=== PATIENT | female | born 1960 | race Caucasian/White ===

== ENCOUNTER 2021-06-11 06:14 | Inpatient (IN) | payer OTHER ==
[~2021-06-11] VITALS: Ht 182.9 cm; Wt 97.7 kg
[~2021-06-11 06:14] MED LIST: ATOR10TA PO; BUPR150T8 PO; GABA-339 PO; LAMO200T2 PO; LANS30CA57 PO; LEVO125T7 PO; OLAN20TA PO; SERT100T PO; TRAZ100T3 PO
[2021-06-11] MEDS ORDERED: POVIDONE IODINE 10 % TOPICAL OINT 30GM TOP ONE (06:37)
[2021-06-11] MEDS ORDERED: SUCCINYLCHOLINE CHLORIDE 20 MG/ML 10ML VIAL IV ONE (06:58)
[2021-06-11] MEDS ORDERED: HYDROmorphone HCL 2 MG/ML VL ONE (07:04)
[2021-06-11] MEDS ORDERED: fentaNYL CITRATE 100 MCG/2 ML VL ONE ×2 (07:04→08:47)
[2021-06-11] MEDS ORDERED: MIDAZOLAM HCL 2MG/2ML 2ml VIAL (1mg/ml) ONE ×2 (07:05→08:08)
[2021-06-11] MEDS ORDERED: ePHEDrine SULFATE 50 MG/ML AMP ONE (07:05)
[2021-06-11] MEDS ORDERED: KETAMINE HCL 10 ML ONE (07:05)
[2021-06-11] MEDS ORDERED: ONDANSETRON HCL 4 MG/2 ML VIAL ONE (07:05)
[2021-06-11] MEDS ORDERED: BUPIVACAINE W/ EPINEPH 0.25% INJ 50ML MDV ONE (07:05)
[2021-06-11] MEDS ORDERED: LIDOCAINE 2% (LOCAL ANESTH.) PF 5ml SDV ONE (07:05)
[2021-06-11] MEDS ORDERED: GLYCOPYRROLATE 0.2 MG/ML 1ML VIAL ONE (07:05)
[2021-06-11] MEDS ORDERED: PROPOFOL 10 MG/ML 20 ML IV ONE (07:05)
[2021-06-11] MEDS ORDERED: PHENYLEPHRINE HCL 10 MG/ML VL ONE (07:05)
[2021-06-11] MEDS ORDERED: fentaNYL CITRATE 10 ML ONE (07:08)
[2021-06-11] MEDS ORDERED: VANCOMYCIN HCL 1000 MG VL ONE (07:08)
[2021-06-11] MEDS ORDERED: ceFAZolin 1GM/50ML 100 ML IV ONE (07:15)
[2021-06-11] MEDS ORDERED: NEOMYCIN-BACITRACIN-POLYM 15GM TOP OINT TOP ONE (08:14)
[2021-06-11] MEDS ORDERED: NALOXONE HCL 0.4 MG/ML VIAL ONE (11:09)
[2021-06-11] MEDS: LACTATED RINGER'S 1,000 ML IV SCH ×2 (11:30→22:41)
[2021-06-11] MEDS ORDERED: OXYCODONE W/ ACETAMINOPHEN 5/325MG TABLET PO PRN (11:30)
[2021-06-11] MEDS ORDERED: ONDANSETRON HCL 4 MG/2 ML VIAL IV PRN ×2 (11:30→11:45)
[2021-06-11] MEDS ORDERED: NITROGLYCERIN 0.4 MG SL TAB SL PRN (11:30)
[2021-06-11] MEDS ORDERED: ACETAMINOPHEN 325 MG TAB PO PRN (11:30)
[2021-06-11] MEDS ORDERED: MORPHINE SULFATE INJECTION 2 MG/ML SYRG IV PRN (11:30)
[2021-06-11] MEDS: HYDROmorphone HCL 2 MG/ML VL IV PRN ×3 (12:25→13:13)
[2021-06-11 13:00] VITALS: BP 119/71
[2021-06-11 17:00] VITALS: BP 130/75
[2021-06-11] MEDS: OXYCODONE W/ ACETAMINOPHEN 5/325MG TABLET PO PRN ×2 (17:02→21:23)
[2021-06-11] MEDS: ceFAZolin 1GM/50ML 50 ML IV SCH ×3 (17:30→22:47)
[2021-06-11] MEDS ORDERED: OLANZapine 5 MG TAB PO SCH (18:00)
[2021-06-11] MEDS: CYCLOBENZAPRINE HCL 10 MG TAB PO PRN (18:10)
[2021-06-11 22:00] VITALS: BP 140/81
[2021-06-11] MEDS ORDERED: SERTRALINE HCL 50 MG TAB PO SCH (22:00)
[2021-06-11] MEDS ORDERED: LAMOTRIGINE 200 MG PO SCH (22:00)
[2021-06-11] MEDS ORDERED: lamoTRIgine 100 MG TAB PO SCH (22:00)
[2021-06-11] MEDS ORDERED: DOCUSATE SOD 100 MG CAP PO SCH (22:00)
[2021-06-11] MEDS ORDERED: ATORVASTATIN 20 MG TAB PO SCH (22:00)
[2021-06-12] MEDS: CYCLOBENZAPRINE HCL 10 MG TAB PO PRN (02:46)
[2021-06-12 05:00] VITALS: BP 126/67
[2021-06-12] MEDS: BUPROPION HCL 150 MG PO SCH ×2 (06:48→08:24)
[2021-06-12] MEDS ORDERED: LEVOTHYROXINE SODIUM 25 MCG TAB PO SCH (07:00)
[2021-06-12] MEDS ORDERED: LEVOTHYROXINE SODIUM 100 MCG TAB PO SCH (07:00)
[2021-06-12] MEDS ORDERED: SENN-62 PO (07:15)
[2021-06-12] MEDS ORDERED: CYCL-837 PO (07:15)
[2021-06-12] MEDS ORDERED: PERCOT PO (07:15)
[2021-06-12 07:23] LABS: Basophils # (auto) 0 10 ^3/uL (0-0.2); Eosinophils # (auto) 0 10 ^3/uL (0-0.8); White Blood Cell 13.9 10^3/uL (4.4-10.8)
[2021-06-12 07:25] LABS: Basophils % (auto) 0.2 % (0.0-2.0); Hematocrit 36.9 % (36.0-46.0); Hemoglobin 13.2 g/dL (12.2-16.2); Lymphocytes # (auto) 2.3 10 ^3/uL (0.4-5.4); Lymphocytes % (auto) 16.4 % (10.0-50.0); Mean Corpuscular Hemoglobin 35.1 pg (28.0-32.0); Mean Corpuscular Hgb Conc. 35.7 g/dL (32.0-36.0); Mean Corpuscular Volume 98.2 fL (80.0-100.0); Monocytes % (auto) 7.3 % (0.0-12.0); Neutrophils # (auto) 10.6 10 ^3/uL (1.6-8.6); Neutrophils % (auto) 76.1 % (37.0-80.0); Red Blood Cells 3.76 10^6/uL (4.0-5.20); Red Cell Distribution Width 11.8 % (11.8-14.3)
[2021-06-12 07:35] LABS: Calcium 8.7 mg/dL (8.5-10.1); Potassium 3.5 mmol/L (3.5-5.1)
[2021-06-12 07:37] LABS: BUN/Creatinine Ratio 11.5
[2021-06-12 08:36] VITALS: BP 125/65
[2021-06-12] MEDS ORDERED: HYDRX10T PO (08:39)
[2021-06-12 08:58] VITALS: BP 125/65
[2021-06-12] MEDS ORDERED: PANTOPRAZOLE 40 MG TAB PO SCH (10:00)
== END 2021-06-12 11:00 | disposition home or self-care (01) | DRG 473 ==
LOC: SUR 06:14 → OVERFLOW 11:19 → CENTRAL 14:05
PROVIDERS: ADMIT Orthopaedic Surgery; ATTEND Orthopaedic Surgery
PROC: BR101ZZ Fluoroscopy of Cervical Spine using Low Osmolar Contrast (ICD-10-PCS; 2021-06-11)
PROC: 4A11X4G Monitoring of Peripheral Nervous Electrical Activity, Intraoperative, External Approach (ICD-10-PCS; 2021-06-11)
PROC: 0RG2071 Fusion of 2 or more Cervical Vertebral Joints with Autologous Tissue Substitute, Posterior Approach, Posterior Column, Open Approach (ICD-10-PCS; principal; 2021-06-11 07:34)
DX: M96.0 Pseudarthrosis after fusion or arthrodesis (principal); F32.A Depression, unspecified; Y83.8 Other surgical procedures as the cause of abnormal reaction of the patient, or of later complication, without mention of misadventure at the time of the procedure; Z20.822 Contact with and (suspected) exposure to COVID-19; E78.00 Pure hypercholesterolemia, unspecified; Z82.49 Family history of ischemic heart disease and other diseases of the circulatory system; Z88.2 Allergy status to sulfonamides; Z88.1 Allergy status to other antibiotic agents
CPT/HCPCS: 36415; 72040; 76000; 80048; 85025; 86850; 86900; 86901; 97116; 97163; 97530; G0378; J0330; J0690; J2001; J2250; J2405; J2704

== ENCOUNTER 2021-09-18 19:52 | Emergency (ER) | payer OTHER ==
[~2021-09-18] VITALS: Ht 182.9 cm; Wt 90.4 kg
[~2021-09-18 19:52] MED LIST changes: +CYCL-837 PO; +HYDRX10T PO; +PERCOT PO; +SENN-62 PO
[2021-09-18 20:26] VITALS: BP 119/74
== END 2021-09-19 00:51 | disposition left against medical advice (07) ==
LOC: ER 19:52
DX: R07.89 Other chest pain (principal); Z53.21 Procedure and treatment not carried out due to patient leaving prior to being seen by health care provider
CPT/HCPCS: 71046; 93005

== ENCOUNTER → 2024-01-24 | Outpatient (CLI) | payer OTHER ==
[~2024-01-24] MED LIST changes: +TRAZ-228 PO; -TRAZ100T3 PO
== END | disposition home or self-care (01) ==
LOC: XYW 13:38
PROVIDERS: ATTEND Orthopaedic Surgery Adult Reconstructive Orthopaedic Surgery
DX: T84.84XA Pain due to internal orthopedic prosthetic devices, implants and grafts, initial encounter (principal); Z96.651 Presence of right artificial knee joint; Y82.8 Other medical devices associated with adverse incidents
CPT/HCPCS: 78315; A9503

== ENCOUNTER 2024-04-12 13:56 | Emergency (ER) | payer OTHER ==
[~2024-04-12] VITALS: Ht 182.9 cm; Wt 84.0 kg
--- NOTE | 2024-04-12 14:41 | ED.PDOC ---
Musculoskeletal HPI Comments A 64 YEAR OLD FEMALE PRESENTS TO THE ED WITH CHIEF COMPLAINT KNEE, ANKLE, AND HEAD PAIN S/P FALL. PATIENT REPORTS THAT SHE HAD ACCIDENTALLY TRIPPED OVER HER DOG YESTERDAY, FALLING AND HITTING HER RIGHT KNEE, TWISTING HER RIGHT ANKLE, AND FELL BACK HITTING HER HEAD ON TILE FLOOR. PATIENT RELAYS THAT SHE HAD A RIGHT KNEE REPLACEMENT. PATIENT DENIES ANY LOC, BLOOD THINNERS, DIZZINESS, NUMBNESS, OR WEAKNESS. PT IS ALERT, ORIENTATION X4 WITH NORMAL GAIT. NO OTHER SYMPTOMS REPORTED AT THIS TIME OF CARE. Chief Complaint: Fall Injury Time Seen by MD: 14:35 Primary Care Provider: Magui Reviewed Notes: Nurses Notes, Medications, Allergies Allergies: Coded Allergies: Sulfa Antibiotics (Verified Allergy, Intermediate, 06/11/21) Tetracycline (Verified Allergy, Unknown, 06/10/21) Morphine (Unverified Adverse Reaction, Intermediate, tachycardia, itchy, 06/10/21) Home Meds Active Scripts Acetaminophen (Tylenol 8 Hour Arthritis) 650 Mg Tab, 650 MG PO TID, #30 TAB Prov:DINESH DAWSON 04/12/24 Sennosides-Docusate Sodium (Senokot S) 1 Tab Tab, 1 TAB PO QPM, #20 TAB Prov:CLARA GARCIA MD 06/12/21 Oxycodone W/ Acetaminophen (Percocet 5/325MG) 1 Tab Tb, 1 TAB PO TID PRN, #20 TAB Prov:CLARA GARCIA MD 06/12/21 Cyclobenzaprine Hcl (Cyclobenzaprine Hcl) 5 Mg Tab, 1 TAB PO TID PRN, #30 TAB Prov:CLARA GARCIA MD 06/12/21 Reported Medications Hydroxyzine Hcl (Hydroxyzine Hcl) 10 Mg Tab, 1 TAB PO BID 06/12/21 Olanzapine (Zyprexa) 20 Mg Tab, 10 MG PO QPM, TAB 06/10/21 Sertraline Hcl (Zoloft) 100 Mg Tab, 100 MG PO HS, TAB 06/10/21 Bupropion Hcl (Wellbutrin Sr) 150 Mg Tab, 150 MG PO QAM, TAB 06/10/21 Trazodone Hcl (Trazodone Hcl) 100 Mg Tab, 100 MG PO HS, TAB 06/10/21 Levothyroxine Sodium (Levothyroxine Sodium) 125 Mcg Tab, 125 MCG PO QAM, TAB 06/10/21 Lansoprazole (Lansoprazole) 30 Mg Cap, 15 MG PO QAM, CAP 06/10/21 Lamotrigine (Lamictal) 200 Mg Tab, 200 MG PO BID, TAB 06/10/21 Gabapentin (Gabapentin) 600 Mg Tab, 1200 MG PO QPM, TAB 06/10/21 Atorvastatin Calcium (Lipitor) 10 Mg Tab, 10 MG PO QPM, TAB 06/10/21 Information Source: Patient Mode of Arrival: Ambulatory Location: Right Extremity Location: Ankle, Knee, Other (BACK OF HEAD) Timing: Days Prehospital treatment: None Severity: Moderate Able to Move Extremity: Yes Bear Weight: Limited Pain: Moderate Mechanism: Blunt Trauma, Twisting Circumstances: Fall Onset of Symptoms: After Trauma Symptoms: Pain DVT Risk Factors: NONE Last Tetanus: UTD History of: Knee Operation Associated signs and symptoms: Knee pain, Ankle pain Past Medical History PAST MEDICAL HISTORY: Denies Surgical History (Other): RT KNEE REPLACEMENT 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 ROLLER Hx Family History Family History: Reviewed,noncontributory to illness, No family hx of Stroke Social History Smoker: Non-Smoker Alcohol: Denies ETOH Use Drugs: Denies Drug Use Lives In: Home Constitutional: denies: chills, diaphoresis, fatigue, fever, malaise, sweats, weakness, others EENTM: denies: blurred vision, double vision, ear bleeding, ear discharge, ear drainage, ear pain, ear ringing, eye pain, eye redness, hearing loss, mouth pain, mouth swelling, nasal discharge, nose bleeding, nose congestion, nose pain , photophobia, tearing, throat pain, throat swelling, voice changes, others Respiratory: denies: cough, hemoptysis, orthopnea, SOB at rest, shortness of breath, SOB with excertion, stridor, wheezing, others Cardiovascular: denies: chest pain, dizzy spells, diaphoresis, Dyspnea on exertion, edema, irregular heart beat, left arm pain, lightheadedness, palpitations, PND, syncope, others Gastrointestinal: denies: abdomen distended, abdominal pain, blood streaked bowels, constipated, diarrhea, dysphagia, difficulty swallowing, hematemesis, melena, nausea, poor appetite, poor fluid intake, rectal bleeding, rectal pain, vomiting, others Genitourinary: denies: abnormal vagina bleeding, burning, dyspareunia, dysuria, flank pain, frequency, hematuria, incontinence, pain, , vagina discharge, urgency, others Neurological: denies: dizziness, fainting, headache, left sided numbness, left sided weakness, numbness, paresthesia, pre-existing deficit, right sided numbness, right sided weakness, seizure, speech problems, tingling, tremors, weakness, others Musculoskeletal: reports: joint pain, joint swelling, others (RT ANKLE PAIN, RT KNEE PAIN, POSTERIOR HEAD PAIN); denies: back pain, gout, muscle pain, muscle stiffness, neck pain Integumetry: denies: bruises, change in color, change in hair/nails, dryness, laceration, lesions, lumps, rash, wounds, others Allergic/Immunocompromised: denies: Difficulty Healing, Frequent Infections, Hives, Itching, others Hematologic/Lymphatic: denies: anemia, blood clots, easy bleeding, easy bruising, swollen glands, others Endocrine: denies: excessive hunger, excessive sweating, excessive thirst, excessive urination, flushing, intolerance to cold, intolerance to heat, unexplained weight gain, unexplained weight loss, others Psychiatric: denies: anxiety, bipolar disorder, depression, hopeless, panic disorder, schizophrenia, sleepless, suicidal, others All Other Systems: Reviewed and Negative Physical Exam General Appearance: No Apparent Distress, Normal HEENT: Head (NO BONY TENDERNESS AND SWELLING ON SCALP, NO CONTUSIONS AND HEMATOMAS OF SCALP. ), Normal ENT Inspection, PERRL/EOMI Neck: Full Range of Motion, Non-Tender, Normal, Normal Inspection Respiratory: Chest Non-Tender, Lungs Clear, No Accessory Muscle Use, No Respiratory Distress, Normal Breath Sounds Cardiovascular: No Edema, No JVD, No Murmur, No Gallop, Normal Peripheral Pulses, Regular Rate/Rhythm Breast Exam: Deferred Gastrointestinal: No Organomegaly, Non Tender, No Pulsatile Mass, Normal Bowel Sounds, Soft Genitalia: Deferred Pelvic: Deferred Rectal: Deferred Extremities: No calf tenderness, Normal capillary refill, Normal range of motion, No pedal edema, Swelling (TENDERNESS AND SWELLING ON RIGHT ANKLE, NO BONY TENDERNESS AND DEFORMITY. ), Tender (TENDERNESS ON RIGHT KNEE, NO BONY TENDERNESS AND DEFORMITY. ) Musculoskeletal : Apperance: Normal Neurologic: Alert, envelope folder II-XII nml as Tested, No Motor Deficits, Normal Affect, Normal Mood, No Sensory Deficits Cerebellar Function: Normal Reflexes: Normal Skin: Dry, Normal Color, Warm Peripheral Pulses: 2+ carotid (R), 2+ carotid (L) Lymphatic: No Adenopathy Was a procedure done? Was a procedure done?: No Differential Diagnosis EXT Differential Diagnosis: Fracture, Sprain, Dislocation, Contusion, Strain, Bursitis X-Ray, Labs, Meds, VS Vital Signs Date Time Temp Pulse Resp B/P (MAP) Pulse Ox O2 Delivery O2 Flow Rate FiO2 04/12/24 15:20 98 20 95 Room Air 04/12/24 15:20 99.1 98 20 125/68 (87) 95 99.1 04/12/24 14:21 99.1 98 20 125/68 (87) 95 CT HEAD: FINDINGS: There is no evidence of acute intracranial hemorrhage, mass, mass effect midline shift. There is no hydrocephalus or extra-axial fluid collection. Bro-white matter differentiation is maintained. The visualized paranasal sinuses and mastoid air cells are clear. The calvarium is intact. IMPRESSION: 1. No acute intracranial process. RT KNEE XR: FINDINGS/IMPRESSION: There is no evidence of acute fracture or dislocation. Right total knee arthroplasty. The alignment is anatomical. There is no radiopaque foreign body. RT ANKLE XR: There is no evidence of acute fracture or dislocation. The visualized joint space is well maintained. The alignment is anatomical. There is no radiopaque foreign body. X-Ray, Labs, Meds, VS Comment EXTERNAL MEDICAL RECORDS REVIEWED: [NONE] INDEPENDENT HISTORIANS: [NONE] SOCIAL DETERMINANTS OF HEALTH: [NONE] LABS ORDERED: NONE REVIEWED AND INTERPRETED RESULTS: RT KNEE XR, RT ANKLE XR, CT HEAD IMAGING ORDERED: RT KNEE XR, RT ANKLE XR, CT HEAD TREATMENTS ORDERED: TYLENOL 1G PO PROCEDURES PERFORMED: NONE CRITICAL CARE TIME: NONE I HAVE DISCUSSED THE PATIENT WITH THE ATTENDING PHYSICIAN DR. GARCIA AND HE AGREES WITH THE PATIENT'S PLAN OF CARE AND DISPOSITION. GIVEN THE HISTORY AND PRESENT ILLNESS OF THE PATIENT, AFTER REVIEWING LABS, IMAGING, AND COURSE OF TREATMENT ADMINISTERED DURING THEIR ED VISIT, THERE IS LOW SUSPICION FOR RED FLAG FINDINGS. BASED ON HISTORY OF PRESENT ILLNESS, AND PHYSICAL EXAM, PATIENT WILL BE DISCHARG ED HOME. DISCUSSED PLAN FOR DISCHARGE HOME WITH RX. MEDICATION WARNINGS GIVEN. SHARED DECISION MAKING: DISCUSSED WITH PATIENT THAT THEIR WORKUP WAS NORMAL. PATIENT INSTRUCTED TO FOLLOW UP WITH PRIMARY CARE PROVIDER IN 1-2 DAYS FOR RE- EVALUATION OF SYMPTOMS. PATIENT VERBALIZES UNDERSTANDING TO RETURN TO ED FOR NEW OR WORSENING SYMPTOMS OR IF FOLLOW UP WITH PCP CANNOT BE OBTAINED. PATIENT FEELS COMFORTABLE GOING HOME AT THIS TIME. ALL QUESTIONS ADDRESSED AT TIME OF DISCHARGE. Time of 1ST Reevaluation: 15:31 Reevaluation 1ST: Improved Patient Education/Counseling: Diagnosis, Treatment, Need For Follow Up Family Education/Counseling: Diagnosis, Treatment, No Family Present Medical Screening: No EMC Exist At This Time Departure 1 Departure Time of Disposition: 15:31 Impression: Primary Impression: Headache Qualified Codes: G44.319 - Acute post-traumatic headache, not intractable Additional Impressions: Sprain of right knee Qualified Codes: S83.8X1A - Sprain of other specified parts of right knee, initial encounter Sprain of right ankle Qualified Codes: S93.401A - Sprain of unspecified ligament of right ankle, initial encounter Status post fall Disposition: 01 HOME / SELF CARE / HOMELESS Condition: Stable Additional Instructions: FOLLOW-UP WITH PCP IN 1 TO 2 DAYS. TAKE MEDICATIONS PRESCRIBED. RETURN TO ED FOR ANY NEW OR WORSENING SYMPTOMS. e-Prescriptions Acetaminophen (Tylenol 8 Hour Arthritis) 650 Mg Tab 650 MG PO TID, #30 TAB Prov: DINESH DAWSON 04/12/24 Discharged With: Self Critical Care Note Critical Care Time?: No Stability Stability form required: No Heart Score Heart Score: Heart Score Response (Comments) Value History N/A 0 EKG N/A 0 Age N/A 0 Risk Factors N/A 0 Troponin N/A 0 Total 0 I personally scribed for DINESH DAWSON ([email or web address]) on 04/12/24 at 14:41. Electronically submitted by Ede Sherman ([email or web address]). I personally scribed for DINESH DAWSON ([email or web address]) on 04/12/24 at 15:16. Electronically submitted by Ede Sherman ([email or web address]). I personally scribed for DINESH DAWSON ([email or web address]) on 04/12/24 at 15:28. Electronically submitted by Ede Sherman ([email or web address]). DINESH DAWSON Apr 12, 2024 14:41
--- NOTE | 2024-04-12 15:06 | DVH ---
EXAM: CT HEAD WITHOUT CONTRAST HISTORY: FALL COMPARISON: None TECHNIQUE: Axial images of the head were obtained and reformatted in coronal and sagittal planes. All CT scans at this medical facility are performed using dose modulation techniques as appropriate t o a performed exam including the following: Automated exposure control was utilized; adjustment of th e MA and/or KV according to patient size; and use of iterative reconstruction technique. CT Dose: CTDI volume is 91 mGy. Dose-length product is 16 19 mGy*cm FINDINGS: There is no evidence of acute intracranial hemorrhage, mass, mass effect midline shift. There is no h ydrocephalus or extra-axial fluid collection. Bro-white matter differentiation is maintained. The visualized paranasal sinuses and mastoid air cells are clear. The calvarium is intact. IMPRESSION: 1. No acute intracranial process. HS:Y
[2024-04-12 15:20] VITALS: BP 125/68; PULSE 98; RESP 20; TEMP 99.1; O2SAT 95
--- NOTE | 2024-04-12 15:20 | DVH ---
EXAM: XY R KNEE 3V XRAY CLINICAL INDICATION: FALL TECHNIQUE: XY R KNEE 3V XRAY Comparison: None FINDINGS/IMPRESSION: There is no evidence of acute fracture or dislocation. Right total knee arthroplasty. The alignment is anatomical. There is no radiopaque foreign body.
--- NOTE | 2024-04-12 15:22 | DVH ---
EXAM: XY R ANKLE 3 VIEW CLINICAL INDICATION: FALL TECHNIQUE: XY R ANKLE 3 VIEW Comparison: None FINDINGS/IMPRESSION: There is no evidence of acute fracture or dislocation. The visualized joint space is well maintained. The alignment is anatomical. There is no radiopaque foreign body.
[2024-04-12] MEDS ORDERED: ACET-1080 PO (15:30)
[2024-04-12] MEDS: ACETAMINOPHEN 325 MG TAB PO ONE (15:31)
== END 2024-04-12 15:42 | disposition home or self-care (01) ==
LOC: ER 13:56
DX: S83.91XA Sprain of unspecified site of right knee, initial encounter (principal); S93.401A Sprain of unspecified ligament of right ankle, initial encounter; R51.9 Headache, unspecified; Z96.651 Presence of right artificial knee joint; Z88.1 Allergy status to other antibiotic agents; Z88.2 Allergy status to sulfonamides; Z88.5 Allergy status to narcotic agent; Z79.899 Other long term (current) drug therapy; W01.0XXA Fall on same level from slipping, tripping and stumbling without subsequent striking against object, initial encounter; Y93.89 Activity, other specified; Y92.89 Other specified places as the place of occurrence of the external cause; Y99.8 Other external cause status
CPT/HCPCS: 70450; 73562; 73610

== ENCOUNTER 2024-08-02 23:25 | Emergency (ER) | payer OTHER ==
[~2024-08-02] VITALS: Ht 182.9 cm; Wt 82.2 kg
[~2024-08-02 23:25] MED LIST changes: +ACET-1080 PO
[2024-08-03 01:30] VITALS: BP 120/76; PULSE 80; RESP 16; TEMP 97.5; O2SAT 96
--- NOTE | 2024-08-03 01:33 | DVH ---
CLINICAL INDICATION: fall injury TECHNIQUE: XY L KNEE 2V XRAY Comparison: XY R KNEE 3V XRAY on DOS: 04/12/24 FINDINGS / IMPRESSION: No evidence of fracture or dislocation. Joint spaces are normal.
--- NOTE | 2024-08-03 01:36 | DVH ---
CLINICAL INDICATION: fall injury TECHNIQUE: XY L SHOULDER 2+ VIEW XRAY Comparison: None FINDINGS/IMPRESSION: : Comminuted fracture and mildly displaced fracture of the left humeral neck. Fracture lines involve th e greater and lesser tuberosities. Bony demineralization. Joint spaces preserved. Overlying soft tissues intact. Visualized left lung is clear.
[2024-08-03] MEDS ORDERED: IBUP-1455 PO (02:09)
--- NOTE | 2024-08-03 02:10 | ED.PDOC ---
Musculoskeletal HPI Comments This patient is a pleasant 64-year-old female who arrives to the ED today for evaluation of left shoulder and left knee concerns status post ground level fall approximately 1 hour prior to arrival. Patient states he accidentally slipped and fell at her home and landed on her left knee and lateral left shoulder. Patient describes significant pain to the left shoulder and moderate pain in the left knee. Patient is able to ambulate. Patient came with the facility on her own. Mild blood loss due to abrasion on left knee. Patient denies any head trauma. Chief Complaint: Fall Injury Time Seen by MD: 23:27 Primary Care Provider: Magui Reviewed Notes: Nurses Notes Allergies: Coded Allergies: Sulfa Antibiotics (Verified Allergy, Intermediate, 06/11/21) Tetracycline (Verified Allergy, Unknown, 06/10/21) Morphine (Unverified Adverse Reaction, Intermediate, tachycardia, itchy, 06/10/21) Home Meds Active Scripts Ibuprofen Micronized (Ibuprofen) 800 Mg Tab, 800 MG PO Q8HP PRN, #30 TAB Prov:DOLORES SIMS PAC 08/03/24 Acetaminophen (Tylenol 8 Hour Arthritis) 650 Mg Tab, 650 MG PO TID, #30 TAB Prov:DINESH DAWSON 04/12/24 Sennosides-Docusate Sodium (Senokot S) 1 Tab Tab, 1 TAB PO QPM, #20 TAB Prov:CLARA GARCIA MD 06/12/21 Oxycodone W/ Acetaminophen (Percocet 5/325MG) 1 Tab Tb, 1 TAB PO TID PRN, #20 TAB Prov:CLARA GARCIA MD 06/12/21 Cyclobenzaprine Hcl (Cyclobenzaprine Hcl) 5 Mg Tab, 1 TAB PO TID PRN, #30 TAB Prov:CLARA GARCIA MD 06/12/21 Reported Medications Hydroxyzine Hcl (Hydroxyzine Hcl) 10 Mg Tab, 1 TAB PO BID 06/12/21 Olanzapine (Zyprexa) 20 Mg Tab, 10 MG PO QPM, TAB 06/10/21 Sertraline Hcl (Zoloft) 100 Mg Tab, 100 MG PO HS, TAB 06/10/21 Bupropion Hcl (Wellbutrin Sr) 150 Mg Tab, 150 MG PO QAM, TAB 06/10/21 Trazodone Hcl (Trazodone Hcl) 100 Mg Tab, 100 MG PO HS, TAB 06/10/21 Levothyroxine Sodium (Levothyroxine Sodium) 125 Mcg Tab, 125 MCG PO QAM, TAB 06/10/21 Lansoprazole (Lansoprazole) 30 Mg Cap, 15 MG PO QAM, CAP 06/10/21 Lamotrigine (Lamictal) 200 Mg Tab, 200 MG PO BID, TAB 06/10/21 Gabapentin (Gabapentin) 600 Mg Tab, 1200 MG PO QPM, TAB 06/10/21 Atorvastatin Calcium (Lipitor) 10 Mg Tab, 10 MG PO QPM, TAB 06/10/21 Information Source: Patient Mode of Arrival: Ambulatory Location: Left Extremity Location: Knee, Shoulder Timing: Minutes Prehospital treatment: None Severity: Moderate Able to Move Extremity: No Bear Weight: Limited Pain: Moderate Hand Dominance: Right Mechanism: Blunt Trauma Circumstances: Fall Onset of Symptoms: After Trauma Symptoms: Swelling, Pain DVT Risk Factors: NONE Associated signs and symptoms: Shoulder pain, Knee pain Past Medical History PAST MEDICAL HISTORY: Denies SANITARY PLUMBER History: Denies all SANITARY PLUMBER Hx Family History Family History: Reviewed,noncontributory to illness, No family hx of Stroke Social History Smoker: Non-Smoker Alcohol: Denies ETOH Use Drugs: Denies Drug Use Lives In: Home Constitutional: denies: chills, diaphoresis, fatigue, fever, malaise, sweats, weakness, others EENTM: denies: blurred vision, double vision, ear bleeding, ear discharge, ear drainage, ear pain, ear ringing, eye pain, eye redness, hearing loss, mouth pain, mouth swelling, nasal discharge, nose bleeding, nose congestion, nose pain, photophobia, tearing, throat pain, throat swelling, voice changes, others Respiratory: denies: cough, hemoptysis, orthopnea, SOB at rest, shortness of breath, SOB with excertion, stridor, wheezing, others Cardiovascular: denies: chest pain, dizzy spells, diaphoresis, Dyspnea on exertion, edema, irregular heart beat, left arm pain, lightheadedness, p alpitations, PND, syncope, others Gastrointestinal: denies: abdomen distended, abdominal pain, blood streaked bowels, constipated, diarrhea, dysphagia, difficulty swallowing, hematemesis, melena, nausea, poor appetite, poor fluid intake, rectal bleeding, rectal pain, vomiting, others Genitourinary: denies: abnormal vagina bleeding, burning, dyspareunia, dysuria, flank pain, frequency, hematuria, incontinence, pain, , vagina discharge, urgency, others Neurological: denies: dizziness, fainting, headache, left sided numbness, left sided weakness, numbness, paresthesia, pre-existing deficit, right sided numbness, right sided weakness, seizure, speech problems, tingling, tremors, weakness, others Musculoskeletal: reports: others (Left shoulder and left knee pain); denies: b ack pain, gout, joint pain, joint swelling, muscle pain, muscle stiffness, neck pain Integumetry: denies: bruises, change in color, change in hair/nails, dryness, laceration, lesions, lumps, rash, wounds, others Allergic/Immunocompromised: denies: Difficulty Healing, Frequent Infections, Hives, Itching, others Hematologic/Lymphatic: denies: anemia, blood clots, easy bleeding, easy bruising, swollen glands, others Endocrine: denies: excessive hunger, excessive sweating, excessive thirst, excessive urination, flushing, intolerance to cold, intolerance to heat, unexplained weight gain, unexplained weight loss, others Psychiatric: denies: anxiety, bipolar disorder, depression, hopeless, panic disorder, schizophrenia, sleepless, suicidal, others Physical Exam General Appearance: Moderate Distress (Patient is in [id number] distress as long as she does not move her extremities or shoulder.), Normal HEENT: Normal ENT Inspection, Pharynx Normal, TMs Normal Neck: Full Range of Motion, Non-Tender, Normal, Normal Inspection Respiratory: Chest Non-Tender, Lungs Clear, No Accessory Muscle Use, No Respiratory Distress, Normal Breath Sounds Cardiovascular: No Edema, No JVD, No Murmur, No Gallop, Normal Peripheral Pulses, Regular Rate/Rhythm Breast Exam: Deferred Gastrointestinal: No Organomegaly, Non Tender, No Pulsatile Mass, Normal Bowel Sounds, Soft Genitalia: Deferred Pelvic: Deferred Rectal: Deferred Extremities: Other (Patient reveals an abrasion and mild edema to left knee. Moderate reduced range of motion. Patient is able to bear weight. Left shoulder is exquisitely tender to palpation on lateral aspect with significant reduced range of motion. Distal neurovascularly intact.) Neurologic: Alert, No Motor Deficits, Normal Affect, Normal Mood, No Sensory Deficits Cerebellar Function: Normal Reflexes: Normal Skin: Dry, Normal Color, Warm Lymphatic: No Adenopathy Was a procedure done? Was a procedure done?: No Differential Diagnosis EXT Differential Diagnosis: Sprain, Dislocation, Contusion, Strain X-Ray, Labs, Meds, VS Vital Signs Date Time Temp Pulse Resp B/P (MAP) Pulse Ox O2 Delivery O2 Flow Rate FiO2 08/03/24 00:36 97.7 84 18 116/76 (89) 95 97.7 X-Ray, Labs, Meds, VS Comment All studies performed at the ED were evaluated by me personally. Imaging studies of the left knee were unremarkable for any acute fractures. Imaging of the left shoulder confirmed a humeral neck fracture and humeral head fracture that is comminuted. Patient was provided with a double sugar-tong splint as well as shoulder immobilization prior to discharge. Patient is familiar with the Dr. Mcleod as he has worked on her knee before. Advised patient to follow up with the primary care provider and conversive with Dr. Mcleod four discussions related to management of left humeral fracture. Pain medication as needed. Patient states she has narcotic pain medication available at home. Time of 1ST Reevaluation: 02:07 Reevaluation 1ST: Unchanged Consultation: PCP Patient Education/Counseling: Diagnosis, Treatment Family Education/Counseling: Diagnosis, Treatment Departure 1 Departure Time of Disposition: 02:08 Impression: Primary Impression: Fracture of neck of left humerus Additional Impression: Knee contusion Disposition: HOME / SELF CARE / HOMELESS Condition: Stable Additional Instructions: Advised patient utilize pain medication as needed for symptomatic relief. Patient needs to follow up with her primary care provider or Dr. Metzger are in the next few days for discussions related to management of her fractured humerus. e-Prescriptions Ibuprofen Micronized (Ibuprofen) 800 Mg Tab 800 MG PO Q8HP PRN, #30 TAB Prov: DOLORES SIMS PAC 08/03/24 Discharged With: Self, Friend Critical Care Note Critical Care Time?: No Stability Stability form required: No Heart Score Heart Score: Heart Score Response (Comments) Value History N/A 0 EKG N/A 0 Age N/A 0 Risk Factors N/A 0 Troponin N/A 0 Total 0 DOLORES SIMS PAC August 03, 2024 02:10
[2024-08-03] MEDS: KETOROLAC TROMETH 30 MG/ML 1ML VIAL IM ONE (02:50)
== END 2024-08-03 03:14 | disposition home or self-care (01) ==
LOC: ER 23:25
DX: S42.212A Unspecified displaced fracture of surgical neck of left humerus, initial encounter for closed fracture (principal); S80.02XA Contusion of left knee, initial encounter; Z88.2 Allergy status to sulfonamides; Z88.5 Allergy status to narcotic agent; Z79.899 Other long term (current) drug therapy; Z79.890 Hormone replacement therapy; W18.39XA Other fall on same level, initial encounter; Y93.89 Activity, other specified; Y92.098 Other place in other non-institutional residence as the place of occurrence of the external cause; Y99.8 Other external cause status
CPT/HCPCS: 29105; 73030; 73560; 96372; 99284; J1885